=== PATIENT | female | born 1970 | race Asian ===

== ENCOUNTER 2018-06-24 11:32 | Day surgery (SDC) | payer OTHER ==
[2018-06-23 16:35] VITALS: BMI 29.5
[2018-06-24] MEDS ORDERED: LIDOCAINE HCL 1%, 10 MG/ML (20ML VIAL) ONE (12:31)
[2018-06-24] MEDS ORDERED: BUPIVACAINE HCL/PF 0.5% (5MG/ML) 10 ML VIAL ONE (12:31)
[2018-06-24] MEDS ORDERED: MIDAZOLAM HCL 2 MG/2 ML SINGLE DOSE VIAL ONE (12:49)
[2018-06-24] MEDS ORDERED: PROMETHAZINE HCL 25 MG/1 ML VIAL IVPUSH PRN (13:43)
[2018-06-24] MEDS ORDERED: ONDANSETRON 4 MG/2 ML VIAL IVPUSH PRN (13:43)
[2018-06-24] MEDS ORDERED: LACTATED RINGERS SOLUTION 1,000 ML IV SCH (13:45)
[2018-06-24] MEDS ORDERED: oxyCODONE HCL 5 MG TABLET ONE (15:53)
[2018-06-24 16:38] VITALS: BP 120/68; PULSE 62; TEMP 97.9
--- NOTE | 2018-06-25 09:04 | OP ---
DATE OF OPERATION: 06/24/2018 PREOPERATIVE DIAGNOSES: Prolapsing hemorrhoids. Fissure in ano. POSTOPERATIVE DIAGNOSES: Prolapsing hemorrhoids. Fissure in ano. PROCEDURES: Hemorrhoidectomy. Removal of sentinel pile. Fissurectomy. SURGEON: Shar Lackey MD ANESTHESIA: Spinal and local. PROCEDURE IN DETAIL: Patient was given spinal anesthesia, placed in the prone position, and local was injected submucosal and intramuscular plane. The fissure was identified and resected from the sphincter muscle. Submucosal dissection of the hemorrhoids was done in two places. The mucosa was then closed with 3-0 Vicryl without any complication. The patient went to the recovery room. SHAR LACKEY M.D. [id number]
--- NOTE | 2018-06-26 16:18 | PATH ---
Surgical Pathology Report Patient Name: KYLEIGH GRIMES [facility]. Rec. #: [id number] /Age/Gender: 1970 (Age: 48) / F Account: [id number] Location: [facility] AMBULATORY Taken: 06/24/2018 Received: 06/24/2018 Reported: 06/26/2018 Physicians: Shar Lackey M.D. Specimen(s) Received HEMORRHOIDS Clinical History Hemorrhoids Final Diagnosis HEMORRHOIDS, HEMORRHOIDECTOMY: POLYPOID SQUAMOUS MUCOSA WITH DILATED THICK WALLED CONGESTED SUBMUCOSAL VESSELS CONSISTENT WITH HEMORRHOIDS. Electronically Signed Karen Cantu M.D. Gross Description Received in formalin labeled "hemorrhoids," are 2 blank-brown portions of skin and soft tissue measuring 1.8 x 1.0 x 0.5 cm and 3.5 x 1.0 x 0.3 cm. Electrical Equipment Tester sections are submitted in one cassette. /06/25/2018 saudi06/25/2018
== END 2018-06-24 16:35 | disposition home or self-care (01) ==
LOC: FASU 11:32
PROVIDERS: ATTEND Surgery Vascular Surgery
PROC: 06BY0ZC Excision of Hemorrhoidal Plexus, Open Approach (ICD-10-PCS; principal; 2018-06-24 13:13)
DX: K64.8 Other hemorrhoids (principal)
CPT/HCPCS: 84703; 88304-TC